=== PATIENT | female | born 1955 | race Caucasian/White ===

== ENCOUNTER → 2017-07-26 | Outpatient (CLI) | payer BC ==
--- NOTE | 2017-07-26 14:31 | MM ---
Reason for exam: screening (asymptomatic). Baseline mammogram. History: Family history of breast cancer in sister at age 57 and breast cancer in daughter at age 32. Physical Findings: Nurse did not find any significant physical abnormalities on exam. MG 3D Screening Mammo W/Cad Bilateral CC and MLO view(s) were taken. There are scattered fibroglandular densities. Nodular asymmetry anterior right breast just below the retroareolar plane. Circumscribed oval nodule lateral left breast likely an intramammary node. Asymmetric density medial left breast middle depth without a clear correlate on MLO. These results were verbally communicated with the patient and result sheet given to the patient on 07/26/17. ASSESSMENT: Incomplete: need additional imaging evaluation, BI-RAD 0 RECOMMENDATION: Special view mammogram of both breasts. If lesion persists on supplemental views, image directed ultrasound is recommended. [facility] will attempt to contact patient to return for supplemental views and ultrasound if indicated.
--- NOTE | 2017-07-26 14:33 | MM ---
Reason for exam: additional evaluation requested from abnormal screening. History: Family history of breast cancer in sister at age 57 and breast cancer in daughter at age 32. Physical Findings: Breast exam preformed at baseline screening. MG 3D Work Up W/Cad NII Bilateral spot compression CC, spot compression MLO, and LM view(s) were taken. CCRL view(s) were taken of the left breast. There are scattered fibroglandular densities. 3mm nodule persists in the 3 o'clock right breast anterior depth. On the left, medial asymmetric density incompletely disperses with spot tomosynthesis. Unable to clearly localize it on lateral or MLO view. These results were verbally communicated with the patient and result sheet given to the patient on 07/26/17. ASSESSMENT: Incomplete: need additional imaging evaluation, BI-RAD 0 RECOMMENDATION: Ultrasound of both breasts. (right 3 o'clock, left medial half)
--- NOTE | 2017-07-26 14:35 | USB ---
Reason for exam: additional evaluation requested from abnormal screening. History: Family history of breast cancer in sister at age 57 and breast cancer in daughter at age 32. US Breast Workup Limited NII Right breast ultrasound demonstrates no cystic or solid lesion seen. Right breast scanned 12-3 o'clock. Left breast ultrasound demonstrates a 0.4 x 0.3 x 0.4cm lesion too small to characterize at 1 o'clock. Left breast scanned 6-12 o'clock. These results were verbally communicated with the patient and result sheet given to the patient on 07/26/17. ASSESSMENT: Probably benign, BI-RAD 3 RECOMMENDATION: Follow-up diagnostic mammogram of both breasts in 6 months.
== END | disposition home or self-care (01) ==
LOC: RADMAMWWP 12:46
PROVIDERS: ATTEND Family Medicine
DX: Z12.31 Encounter for screening mammogram for malignant neoplasm of breast (principal); R92.8 Other abnormal and inconclusive findings on diagnostic imaging of breast
CPT/HCPCS: 77067; 77066; 77063; 76642; G0279

== ENCOUNTER → 2017-08-04 | Outpatient (CLI) | payer BC ==
--- NOTE | 2017-08-04 12:22 | ECHOS ---
STRESS ECHOCARDIOGRAM INDICATIONS: Abnormal EKG. BASELINE HEART RATE: 61 BASELINE BLOOD PRESSURE: 111/49 MAXIMUM HEART RATE: 102 MAXIMUM BLOOD PRESSURE: 146/69 85% MPHR: 136 100% MPHR: 160 METS: 7.1 MAXIMUM STAGE REACHED: 2 TOTAL EXERCISE TIME: 6:00 CLINICAL INFORMATION: Patient was exercised for a total period of 6 minutes, Peak heart rate of only 102 was achieved. Maximum blood pressure of 146/69 mmHg was noted. Resting EKG shows normal sinus rhythm with a QRS morphology suggestive for left bundle branch block pattern was noted. No significant ST-segment change from the baseline was noted. Occasional PVCs and PACs were noted. The baseline echocardiographic images reveals normal left ventricular chamber size with normal left ventricular systolic function and atypical septal motion secondary to left bundle branch block pattern was noted. At the peak exercise, normal increase in the wall thickness and contractility is noted. FINAL IMPRESSION: 1. This stress echocardiographic study is inconclusive to diagnose ischemia because only 70% of the predicted heart rate was achieved. 2. Resting EKG shows left bundle branch block and inconclusive to diagnose ischemia. 3. The echocardiographic study does not show any significant wall motion abnormality up to the heart rate of 102. MMODL / IJN: [id number] /
== END | disposition home or self-care (01) ==
LOC: RADNMMAIN 09:45
PROVIDERS: ATTEND Family Medicine
DX: I44.7 Left bundle-branch block, unspecified (principal)
CPT/HCPCS: 93017; 93350